=== PATIENT | male | born 1980 | race Caucasian/White ===

== ENCOUNTER 2025-03-11 09:00 | Emergency (ER) | payer SELFPAY ==
--- NOTE | 2025-03-11 09:01 | ED_ITS ---
HPI - Animal Bite General Chief Complaint: Animal Bite Stated Complaint: RT Hand Dog Bite Time Seen by Provider: 03/11/25 09:00 Source: patient Mode of arrival: ambulatory Limitations: no limitations History of Present Illness HPI narrative: Patient is a 44-year-old male who presents with dog bite to right hand that happened approximately 4:00 p.m. yesterday. Patient states it was his dog and the dog is up-to-date on shots. Patient is unsure when his last tetanus shot was. Patient states his hand is swollen and his index finger is numb and can not move. Related Data Allergies Allergy/AdvReac Type Severity Reaction Status Date / Time No Known Allergies Allergy Verified 03/11/25 09:07 Review of Systems Review of Systems: All systems reviewed & are unremarkable except as noted in HPI and below Constitutional: Constitutional: Denies body ache(s), Denies chills, Denies fatigue, Denies fever(s), Denies headache(s), Denies malaise and Denies weakness Eyes: Eyes: Denies blurry vision, Denies irritation and Denies loss of vision ENT: Denies otalgia, Denies headache(s), Denies nasal discharge, Denies sinus pain and Denies sore throat Cardiovascular: Cardiovascular: Denies chest pain, Denies irregular heart rhythm and Denies dyspnea Respiratory: Respiratory: Denies dyspnea Gastrointestinal: Gastrointestinal: Denies abdominal pain, Denies melena, Denies hematochezia, Denies diarrhea, Denies nausea and Denies vomiting Musculoskeletal: Musculoskeletal: Denies back pain, Denies myalgias, Reports arthralgias and Reports joint swelling Integumentary/Breasts: Skin/Breast: Denies pruritus, Denies rash and Reports wounds Neurologic: Denies headache(s), Denies loss of vision and Denies weakness Psychiatric: Psychiatric: Reports no additional psychiatric complaints Endocrine: Endocrine: Denies fatigue PMFSH Social History Social History Alcohol intake: current Comments At time of signature, agree with nursing past medical, surgical, social and family history. There is no relevant family history pertinent to the presenting complaint. Exam Const: General: cooperative, healthy appearing, comfortable, no acute distress and well nourished Nutritional Appearance: well nourished Orientation/consciousness: patient oriented x3 Limitations: no limitations HENMT: Head: normal to inspection, normocephalic and atraumatic Ears: hearing grossly normal bilaterally and external ears normal Face/Nose/Sinus: Normal external nose present, normal facial exam and face symmetric Face and sinus: normal facial exam and face symmetric Mouth: Yes lip normal Eyes: General: appearance normal, both eyes and all related structures Alignment and Position: alignment normal and position normal Periorbital: periorbital findings normal Eyelids: eyelids normal Pupils: Equal, round and reactive pupils present EOM: EOMs intact bilaterally Neck: Neck: normal visual inspection, full ROM and supple Chest: Chest palpation & inspection: normal inspection of the chest Resp: Effort & Inspection: normal respiratory effort and able to speak in complete sentences Auscultation: clear to auscultation bilaterally Cardio: Rate: regular rate Rhythm: regular rhythm Heart sounds: S1 normal heart sound present and S2 normal heart sound present GI: Inspection: normal to inspection Skin: General skin exam: normal color and no rashes or lesions noted Neuro: General: patient oriented x3 and moves all extremities Cranial nerves: Yes Equal, round and reactive pupils present Speech: normal speech Gait exam (Neuro): Normal gait present Extrem: General: normal to inspection, full ROM and no edema Right upper extremity: wrist normal to inspection, normal ROM and radial pulse present; no tenderness and Extremity exam: right hand neuromotor exam normal wrist extension normal, thumb opposition normal, thumb IP flexion normal and thumb ADduction normal, neuromotor exam abnormal fingers 2-5 ABduction abnormal weak (2nd digit), neurosensory exam normal radial nerve sensory function normal, ulnar nerve sensory function normal and median nerve sensory function normal, neurosensory exam abnormal digital nerve sensory function normal in the 2nd digit, tendon exam normal of the thumb, of the 3rd digit, of the 4th digit and of the 5th digit, tendon exam abnormal function weak (2nd digit), tenderness of the dorsal hand, of the palm and of the 2nd digit, vascular exam radial pulse present and normal capillary refill, abnormal ROM of finger unable to flex or extend of the 2nd digit, swelling of the dorsal hand and of the 2nd digit and abrasion (multiple superficial laceration to both palmar and dorsal hand) Psych: Appearance: grossly normal and well kempt Mental Status: mental status grossly normal Speech and movement: Normal speech and movement present Affect: normal affect Attitude: cooperative Thought process: Normal thought process present Course Course Emergency Course: Patient is aware of diagnosis, understands and agrees to treatment plan. Anticipatory guidance given. Patient agrees to follow-up as directed and is aware of reasons to seek care at the emergency department. Portions of this record may have been created with voice recognition software Level of Care: Express Care Visit Vital Signs Vital signs: Reviewed MDM - Animal Bite MDM Narrative Medical decision making narrative: The dorsum and palm of the hand is diffusely swollen and tender. The skin has multiple superficial abrasions. Flexion and extension of the fingers is full and strong except for right index finger. Patient is unable to move index finger and states it is significantly numb compared to other fingers. Discussed transfer to emergency department which patient replied ?I am not doing that. So this was a waste of time ?. Stated we can do an x-ray but that is not going to look at nerves or tendons that could also be infected from bite causing inability to bend finger. Patient still refuses transfer and refuses tetanus shot updating. No significant erythema throughout hand or finger. Will send patient with Augmentin. Discussed the importance of following up with PCP or going to the ER if symptoms are not improving as it is likely he will need IV antibiotics. Patient states he will figure it out himself. Differential Diagnosis Differential diagnosis: Likely bite by animal and dog bite Medical Records Attestation: I reviewed the patient's medical records. Discharge Plan Discharge Clinical Impression: Dog bite Patient Disposition: Left Against Medical Advice Condition: Stable Instructions: Animal Bite (ED) Additional Instructions: Clean with soap and water only; Avoid using alcohol and peroxide. Keep covered during the day. Use Bactroban antibiotic daily. Elevate the affected area if possible Alternate Tylenol/ibuprofen for as needed for pain Acetaminophen(Tylenol) 650- 1000mg every 4-6hours with max of 4000mg/day. Nonsteroidal anti-inflammatory agent (NSAIDs-ibuprofen): 400mg every 4-6hours with max 2400mg/day Apply moist heat 3-4 times daily for 10-15 minutes. Take antibiotic until it's gone. Please schedule a follow up visit with your personal physician for further evaluation and treatment within 3-5days OR if your symptoms persist, change or worsen significantly before you can contact your personal physician then please, without delay, go to the emergency department for further evaluation. If you experience any worsening redness, swelling, streaking (red lines), fever, chills or continued numbness and decreased range of motion please go to the ER Patient Language: Nepali Prescriptions: New amoxicillin-pot clavulanate 875-125 mg tablet 1 tablet PO Q12H 10 Days Qty: 20 0RF Follow-up/Referrals: Jamie,MD Kyra [Primary Care Provider, Unknown] - 3 Days Time of Disposition: 09:22
[2025-03-11 09:08] VITALS: BP 138/94; PULSE 101; RESP 18; TEMP 36.7; O2SAT 99
== END 2025-03-11 09:25 | disposition left against medical advice (07) ==
PROVIDERS: Emergency Provider Nurse Practitioner Family; PCP Family Medicine
DX: S61.411A Laceration without foreign body of right hand, initial encounter (principal); W54.0XXA Bitten by dog, initial encounter; I10 Essential (primary) hypertension
CPT/HCPCS: 99213; G0463